=== PATIENT | female | born 2000 | race Caucasian/White ===

== ENCOUNTER 2021-12-02 08:21 | Outpatient (CLI) | payer OTHER, SELFPAY | END 2021-12-02 08:22 | disposition home or self-care (01) | LOC: CT 08:21 | PROVIDERS: ATTEND Student in an Organized Health Care Education/Training Program | DX: J34.89 Other specified disorders of nose and nasal sinuses (principal); Z53.9 Procedure and treatment not carried out, unspecified reason | CPT/HCPCS: 70486 ==